=== PATIENT | male | born 1985 | race Two or more races ===

== ENCOUNTER 2025-06-14 01:33 | Emergency (ER) | payer OTHER ==
[~2025-06-14] VITALS: Ht 198.1 cm; Wt 97.5 kg
[2025-06-14] MEDS ORDERED: KETOROLAC TROMETHAMINE 30 MG VIAL IV STA (02:25)
[2025-06-14] MEDS ORDERED: PROMETHAZINE HCL 50 MG/ML AMPUL IM STA (02:25)
[2025-06-14] MEDS ORDERED: TAMSULOSIN HCL 0.4 MG CAP PO STA (02:26)
[2025-06-14] MEDS ORDERED: TAMSULOSIN HCL 0.4 MG CAP PO ONE (02:30)
[2025-06-14] MEDS ORDERED: SODIUM CHLORIDE 0.45 % 1,000 ML IV ONE (02:30)
[2025-06-14] MEDS ORDERED: KETOROLAC TROMETHAMINE 30 MG VIAL ONE (02:30)
[2025-06-14] MEDS ORDERED: PROMETHAZINE HCL 50 MG/ML AMPUL IM ONE (02:31)
[2025-06-14 03:12] LABS: BASO % 0.3 % (0.1-1.2); EOS # 0.00 (0.04-0.54); EOS % 0.0 % (0.7-7.0); LYMPH # 0.72 (1.18-3.74); LYMPH % 6.5 % (19.3-53.1); MEAN PLATELET VOLUME 11.50 fl (9.4-12.4); MONO # 0.42 (0.24-0.82); MONO % 3.8 % (4.7-12.5); NEUT # 9.82 (1.56-6.13); NEUT % 89.2 % (34.0-71.1); RED CELL DISTRIBUTION WIDTH 12.0 % (11.6-14.4)
[2025-06-14 03:29] LABS: BUN CREA RATIO 15.0 (7.0-25.0); CREATININE SERUM 1.55 mg/dL (0.70-1.30); GFR 50.43; GLUCOSE FASTING 157.0 mg/dL (65-100); OSMOLALITY SERUM 284.0 MOSM/KG (275-295)
[2025-06-14 04:07] LABS: URINE BACTERIA 18.3 uL (0.0-1933); URINE EPITHELIAL CELLS 2.2 uL (0.0-38.8); URINE RBC 51.1 uL (0.0-20.8); URINE WBC 4.1 uL (0.0-23.2)
[2025-06-14 04:10] LABS: URINE APPEARANCE Clear; URINE BILIRRUBIN Negative (NEGATIVE); URINE BLOOD Small; URINE CAST 0.00 uL (0.0-1.40); URINE COLOR Yellow; URINE GLUCOSE Negative (NEGATIVE); URINE KETONE 40 (NEGATIVE); URINE LEUKOCYTE Negative; URINE NITRATE Negative; URINE PROTEIN Negative (NEGATIVE); URINE UROBILINOGEN 1.0 E.U./dl
[2025-06-14] MEDS ORDERED: KETO10TA2 PO (05:26)
[2025-06-14] MEDS ORDERED: CIPRO500 MG PO (05:26)
[2025-06-14] MEDS ORDERED: TAMSULOSIN HCL0.4 MG PO ×2 (05:28)
== END 2025-06-14 05:38 ==
LOC: ER 01:34
PROVIDERS: General Practice
DX: N20.1 Calculus of ureter (principal); R10.A2 Flank pain, left side; Z87.442 Personal history of urinary calculi